=== PATIENT | male | born 1960 | race Caucasian/White ===

== ENCOUNTER 2017-12-16 06:38 | Inpatient (IN) ==
[2017-12-16] MEDS ORDERED: Sod Chloride 0.9% Inj 1,000 ML IV.SIG ONE (07:24)
[2017-12-16] MEDS ORDERED: Morphine Inj 4 MG/ML Vial IV.PUSH STA (07:24)
[2017-12-16 07:54] LABS: Baso # (Auto) 0.1 th/mm3 (0.0-0.2); Eos # (Auto) 0.1 th/mm3 (0.0-0.4); Eos % (Auto) 0.9 % (0.0-4.0); Hematocrit 44.7 % (39.0-51.0); Hemoglobin 15.9 gm/dL (13.0-17.0); Lymph # (Auto) 2.2 th/mm3 (1.0-4.8); Lymph % (Auto) 18.7 % (9.0-44.0); Mean Corpuscular HGB Conc 35.5 % (32.0-36.0); Mean Corpuscular Hemoglobin 34.2 pg (27.0-34.0); Mean Corpuscular Volume 96.4 fL (80.0-100.0); Mean Platelet Volume 9.7 fL (7.0-11.0); Mono # (Auto) 0.9 th/mm3 (0.0-0.9); Mono % (Auto) 7.8 % (0.0-8.0); Neut # (Auto) 8.6 th/mm3 (1.8-7.7); Neut % (Auto) 71.6 % (16.0-70.0); Platelet Count 213 th/mm3 (150-450); Red Blood Count 4.64 mil/mm3 (4.50-5.90); Red Cell Distribution Width 12.7 % (11.6-17.2); White Blood Count 11.9 th/mm3 (4.0-11.0)
[2017-12-16 08:03] LABS: Chloride 102 meq/L (98-107); Potassium 3.7 meq/L (3.5-5.1); Sodium 134 meq/L (136-145)
[2017-12-16 08:07] LABS: Activated Partial Thrombo Time 27.4 sec (24.3-30.1); Albumin 3.8 g/dL (3.4-5.0); Anion Gap 9 meq/L (5-15); Blood Urea Nitrogen 7 mg/dL (7-18); Calcium 8.3 mg/dL (8.5-10.1); Carbon Dioxide 22.8 meq/L (21.0-32.0); Glucose,Random 121 mg/dL (74-106); Prothrombin Time 10.4 sec (9.8-11.6)
[2017-12-16 08:10] LABS: Alanine Aminotransferase 43 U/L (12-78); Aspartate Aminotransferase 35 U/L (15-37); Glomerular Filtration Rate Greater Than 89 mL/min (>89)
[2017-12-16 08:12] LABS: Lipase 19203 U/L (73-393); Total Protein 7.5 g/dL (6.4-8.2)
[2017-12-16 08:13] LABS: Alkaline Phosphatase 71 U/L (45-117); Creatine Kinase 433 U/L (39-308)
[2017-12-16 08:25] LABS: CKMB Percent 0.5 % (0.0-4.0); Creatine Kinase MB 2.1 ng/mL (0.5-3.6)
--- NOTE | 2017-12-16 08:29 | XR ---
EXAM DATE: 12/16/2017 8:06 AM EDT AGE/SEX: 57 years / Male INDICATIONS: Chest and epigastric pain. CLINICAL DATA: This is the patient's initial encounter. Patient reports that signs and symptoms have been present for 2 days and indicates a pain score of 10/10. MEDICAL/SURGICAL HISTORY: None. None. COMPARISON: PA lateral views chest dated July 14, 2014. FINDINGS: A single AP view of the chest demonstrates the lungs to be symmetrically aerated without evidence of mass, infiltrate or effusion. The cardiomediastinal contours are unremarkable. Osseous structures a re intact. CONCLUSION: Negative examination. Electronically signed by: Pam Richards MD 12/16/2017 8:27 AM EDT
[2017-12-16] MEDS ORDERED: Pantoprazole Inj 40 MG Vial IV.PUSH STA (08:39)
[2017-12-16] MEDS: Labetalol HCl Inj 100 MG/20 ML Vial IV.PUSH STA ×2 (08:59→10:00)
--- NOTE | 2017-12-16 09:28 | CT ---
EXAM DATE: 12/16/2017 9:21 AM EDT AGE/SEX: 57 years / Male INDICATIONS: Abdomen pain, bloating, nausea, vomiting 1 day CLINICAL DATA: This is the patient's initial encounter. Patient reports that signs and symptoms have been present for 1 day and indicates a pain score of 10/10. MEDICAL/SURGICAL HISTORY: Hypertension. Fusion, cervical. Umbilical hernia ORAL CONTRAST: No oral contrast ingested. RADIATION DOSE: 16.52 CTDI (mGy) COMPARISON: No prior exams available for comparison. TECHNIQUE: Multiple contiguous axial images were obtained through the abdomen and pelvis following b olus infusion of 95ML ml Omnipaque 350 (iohexol) nonionic water-soluble contrast as a single exam d ose. No oral contrast ingested. Using automated exposure control and adjustment of the mA and/or kV according to patient size, radiation dose was kept as low as reasonably achievable to obtain optimal diagnostic quality images. DICOM format image data is available electronically for review and compar [place]. FINDINGS: Lower Lungs: The visualized lower lungs are clear. Liver: The liver has a homogeneous low density without space-occupying lesion. There is no dilation o f the biliary tree. Gallbladder is unremarkable. Spleen: Homogeneous density without enlargement. Pancreas: The pancreas demonstrates normal enhancement. There is significant peripancreatic inflamma tory changes with grade of the adjacent mesenteric fat and a small fluid collection identified anteri or to the proximal pancreas, posterior to the greater curvature of the stomach. No evidence of concer donis pancreatic mass or pancreatic necrosis. Kidneys: Small exophytic simple cyst involving the left kidney. The kidneys are otherwise unremarkab le without evidence of concerning mass, hydronephrosis or stones. Adrenal Glands: Unremarkable. Aorta: The aorta and proximal iliac vessels are grossly unremarkable without aneurysmal dilation. Bowel/Mesentery: The bowel loops are grossly unremarkable. The cecum and sigmoid colon have a normal configuration. Abdominal Wall: Intact. Retroperitoneum: No evidence of adenopathy in the retrocrural, para-aortic, or deep pelvic regions. Bladder: Contours are smooth. Reproductive Organs: No abnormal masses or calcifications seen. Inguinal: The inguinal region is unremarkable without evidence of adenopathy. Bony Structures: Unremarkable. CONCLUSION: 1. CT findings consistent with acute pancreatitis. No evidence of pancreatic necrosis. 2. Fatty infiltration of the liver. Electronically signed by: Pam Richards MD 12/16/2017 9:27 AM EDT
[2017-12-16 09:31] LABS: Bilirubin,Urine Negative (Negative); Clarity,Urine Clear (Clear); Color,Urine Yellow (Yellw/Straw); Glucose,Urine (UA) Negative (Negative); Leukocyte Esterase,Urine Negative (Negative); Nitrite,Urine Negative (Negative); Specific Gravity,Urine 1.015 (1.002-1.035); Urobilinogen,Urine 0.2 mg/dL (Less than 2)
--- NOTE | 2017-12-16 09:33 | ED ---
HPI General Chief complaint: Abdominal Pain Stated complaint: Stomach bloated,chest tight since yesterday a.m. Time Seen by Provider: 12/16/17 07:05 History of Present Illness HPI narrative: 57-year-old male history of hypertension here for evaluation of abdominal pain that started 2 days ago in the epigastric area, pain is rated 9 out of 10, comes and goes, nothing makes it better or worse. No vomiting but nausea, no diarrhea or black stool. Patient states he had a colonoscopy done about 10 years ago and was "normal". No fever or chills or night sweats. Patient reports drinking about 5 or 6 beers every night as well as 2 glasses of wine daily. Related Data Home Medications Medication Instructions Recorded Confirmed Lipitor 80 mg PO HS 12/16/17 12/19/17 [place] 5 - 325 mg PO DIRECTED 12/16/17 12/16/17 metoprolol succinate 50 mg PO DAILY 12/16/17 12/19/17 Allergies Allergy/AdvReac Type Severity Reaction Status Date / Time Sulfa (Sulfonamide Allergy Severe Rash, Verified 12/16/17 06:51 Antibiotics) Generalized Review of Systems Except as stated in HPI: all other systems reviewed are negative FORMERLY [facility], 1928–1983 Medical History Medical History Alcohol abuse (Acute) Chronic neck and back pain (Acute) Hyperlipemia (Acute) Hypertension (Acute) Surgical History Surgical History History of hernia repair (Acute) History of neck surgery (Acute) Family History Family History Other Family history non-contributory Social History Social History Substance History: No History of Abuse Second Hand Smoke Exposure: Yes Smoking Status: Current every day smoker Tobacco Type: Cigarettes How Often Do You Have a Drink Containing Alcohol: 4 or more times a week Recent Travel in [facility] within the Last 8 Weeks: No Recent Out of Country Travel within the Last 8 Weeks: No Immunization History Tetanus Immunization: Unsure Hx Influenza Vaccine This Season: Yes Exam Narrative Exam Narrative: GENERAL: Alert oriented 3 no acute distress SKIN: Focused skin assessment warm/dry. HEAD: Atraumatic. Normocephalic. EYES: Pupils equal and round. No scleral icterus. No injection or drainage. ENT: No nasal bleeding or discharge. Mucous membranes pink and moist. NECK: Trachea midline. No JVD. CARDIOVASCULAR: Regular rate and rhythm. No murmur appreciated. RESPIRATORY: No accessory muscle use. Clear to auscultation. Breath sounds equal bilaterally. GASTROINTESTINAL: Tenderness on palpation of the epigastric region, no rebound, mild distention, abdomen soft. MUSCULOSKELETAL: No obvious deformities. No clubbing. No cyanosis. No edema. NEUROLOGICAL: Awake and alert. No obvious cranial nerve deficits. Motor grossly within normal limits. Normal speech. PSYCHIATRIC: Appropriate mood and affect; insight and judgment normal. Procedures Hemaprompt Stool Procedural Steps Taken: specimen placed in appropriate test area Hemaprompt Stool Result: negative Course Initial Documented Vital Signs Pulse Rate 88 12/16/17 06:45 Respiratory Rate 18 12/16/17 06:45 Blood Pressure 205/118 H 12/16/17 06:45 Pulse Oximetry 98 12/16/17 06:45 Last Documented Vital Signs Temperature 98.0 F 12/21/17 12:00 Pulse Rate 84 12/21/17 12:00 Respiratory Rate 19 12/21/17 12:00 Blood Pressure 139/82 12/21/17 12:00 Pulse Oximetry 97 12/21/17 12:00 Medical Decision Making [facility] Narrative Medical decision making narrative: 57-year-old male here for evaluation of abdominal pain, labs are concerning for pancreatitis, elevated lipase of 19,000 , pt will be admitted for pancreatitis management. Lab Data Result diagrams: 12/20/17 05:45 12/20/17 05:45 Lab Results 12/16/17 12/16/17 12/16/17 Range/Units 07:41 07:41 07:41 CBC w Diff Auto diff final WBC 11.9 H (4.0-11.0) th/mm3 RBC 4.64 (4.50-5.90) mil/mm3 Hgb 15.9 (13.0-17.0) gm/dL Hct 44.7 (39.0-51.0) % MCV 96.4 (80.0-100.0) fL MCH 34.2 H (27.0-34.0) pg MCHC 35.5 (32.0-36.0) % RDW 12.7 (11.6-17.2) % Plt Count 213 (150-450) th/mm3 MPV 9.7 (7.0-11.0) fL Neut % (Auto) 71.6 H (16.0-70.0) % Lymph % (Auto) 18.7 (9.0-44.0) % [place] % (Auto) 7.8 (0.0-8.0) % Eos % (Auto) 0.9 (0.0-4.0) % Baso % (Auto) 1.0 (0.0-2.0) % Neut # (Auto) 8.6 H (1.8-7.7) th/mm3 Lymph # (Auto) 2.2 (1.0-4.8) th/mm3 [place] # (Auto) 0.9 (0.0-0.9) th/mm3 Eos # (Auto) 0.1 (0.0-0.4) th/mm3 Baso # (Auto) 0.1 (0.0-0.2) th/mm3 WBC Differential . Differential Comment . PT 10.4 (9.8-11.6) sec INR 1.0 Ratio APTT 27.4 (24.3-30.1) sec Sodium 134 L (136-145) meq/L Potassium 3.7 (3.5-5.1) meq/L Chloride 102 (98-107) meq/L Carbon Dioxide 22.8 (21.0-32.0) meq/L Anion Gap 9 (5-15) meq/L BUN 7 (7-18) mg/dL Creatinine 0.77 (0.60-1.30) mg/dL Estimated GFR Greater than 89 (>89) mL/min Random Glucose 121 H (74-106) mg/dL Calcium 8.3 L (8.5-10.1) mg/dL Total Bilirubin 0.7 (0.2-1.0) mg/dL AST 35 (15-37) U/L ALT 43 (12-78) U/L Alkaline Phosphatase 71 (45-117) U/L Total Creatine Kinase 433 H (39-308) U/L CK-MB (CK-2) 2.1 (0.5-3.6) ng/mL CK-MB (CK-2) % 0.5 (0.0-4.0) % Troponin I Less than 0.02 L (0.02-0.05) ng/mL Total Protein 7.5 (6.4-8.2) g/dL Albumin 3.8 (3.4-5.0) g/dL Lipase 01300 H (73-393) U/L Ur Collection Type Urine Color (Yellw/Straw) Urine Clarity (Clear) Urine pH (5.0-8.5) Ur Specific [place] (1.002-1.035) Urine Protein (Neg-Trace) mg/dL Urine Glucose (UA) (Negative) mg/dL Urine Ketones (Negative) mg/dL Urine Occult Blood (Negative) Urine Nitrate (Negative) Urine Bilirubin (Negative) Urine Urobilinogen (Less than 2) mg/dL Ur Leukocyte Esterase (Negative) Urine WBC (0-5) /hpf Urine Mucus (Occasional) /lpf Micro UA Comment Urine Culture Comments 12/16/17 12/17/17 12/17/17 Range/Units 09:05 06:15 06:15 CBC w Diff Auto diff final WBC 8.2 (4.0-11.0) th/mm3 RBC 4.38 L (4.50-5.90) mil/mm3 Hgb 14.5 (13.0-17.0) gm/dL Hct 42.4 (39.0-51.0) % MCV 96.9 (80.0-100.0) fL MCH 33.1 (27.0-34.0) pg MCHC 34.2 (32.0-36.0) % RDW 12.7 (11.6-17.2) % Plt Count 180 (150-450) th/mm3 MPV 9.4 (7.0-11.0) fL Neut % (Auto) 69.5 (16.0-70.0) % Lymph % (Auto) 20.4 (9.0-44.0) % [place] % (Auto) 8.4 H (0.0-8.0) % Eos % (Auto) 1.5 (0.0-4.0) % Baso % (Auto) 0.2 (0.0-2.0) % Neut # (Auto) 5.7 (1.8-7.7) th/mm3 Lymph # (Auto) 1.7 (1.0-4.8) th/mm3 [place] # (Auto) 0.7 (0.0-0.9) th/mm3 Eos # (Auto) 0.1 (0.0-0.4) th/mm3 Baso # (Auto) 0.0 (0.0-0.2) th/mm3 WBC Differential . Differential Comment . PT (9.8-11.6) sec INR Ratio APTT (24.3-30.1) sec Sodium 136 (136-145) meq/L Potassium 3.7 (3.5-5.1) meq/L Chloride 101 (98-107) meq/L Carbon Dioxide 30.3 (21.0-32.0) meq/L Anion Gap 5 (5-15) meq/L BUN 11 (7-18) mg/dL Creatinine 0.83 (0.60-1.30) mg/dL Estimated GFR Greater than 89 (>89) mL/min Random Glucose 100 (74-106) mg/dL Calcium 8.0 L (8.5-10.1) mg/dL Total Bilirubin (0.2-1.0) mg/dL AST (15-37) U/L ALT (12-78) U/L Alkaline Phosphatase (45-117) U/L Total Creatine Kinase (39-308) U/L CK-MB (CK-2) (0.5-3.6) ng/mL CK-MB (CK-2) % (0.0-4.0) % Troponin I (0.02-0.05) ng/mL Total Protein (6.4-8.2) g/dL Albumin (3.4-5.0) g/dL Lipase 3364 H (73-393) U/L Ur Collection Type Clean catch Urine Color Yellow (Yellw/Straw) Urine Clarity Clear (Clear) Urine pH 6.0 (5.0-8.5) Ur Specific [place] 1.015 (1.002-1.035) Urine Protein Negative (Neg-Trace) mg/dL Urine Glucose (UA) Negative (Negative) mg/dL Urine Ketones Negative (Negative) mg/dL Urine Occult Blood Negative (Negative) Urine Nitrate Negative (Negative) Urine Bilirubin Negative (Negative) Urine Urobilinogen 0.2 (Less than 2) mg/dL Ur Leukocyte Esterase Negative (Negative) Urine WBC 0-5 (0-5) /hpf Urine Mucus Rare (Occasional) /lpf Micro UA Comment Culture not ind Urine Culture Comments Culture not ind 12/18/17 12/19/17 12/20/17 Range/Units 05:03 05:22 05:45 CBC w Diff WBC 8.3 (4.0-11.0) th/mm3 RBC 3.31 L (4.50-5.90) mil/mm3 Hgb 11.5 L (13.0-17.0) gm/dL Hct 32.1 L (39.0-51.0) % MCV 97.0 (80.0-100.0) fL MCH 34.8 H (27.0-34.0) pg MCHC 35.9 (32.0-36.0) % RDW 12.5 (11.6-17.2) % Plt Count 180 (150-450) th/mm3 MPV 9.0 (7.0-11.0) fL Neut % (Auto) (16.0-70.0) % Lymph % (Auto) (9.0-44.0) % [place] % (Auto) (0.0-8.0) % Eos % (Auto) (0.0-4.0) % Baso % (Auto) (0.0-2.0) % Neut # (Auto) (1.8-7.7) th/mm3 Lymph # (Auto) (1.0-4.8) th/mm3 [place] # (Auto) (0.0-0.9) th/mm3 Eos # (Auto) (0.0-0.4) th/mm3 Baso # (Auto) (0.0-0.2) th/mm3 WBC Differential Differential Comment PT (9.8-11.6) sec INR Ratio APTT (24.3-30.1) sec Sodium 135 L 135 L (136-145) meq/L Potassium 3.4 L 3.5 (3.5-5.1) meq/L Chloride 99 101 (98-107) meq/L Carbon Dioxide 29.2 27.3 (21.0-32.0) meq/L Anion Gap 7 7 (5-15) meq/L BUN 13 8 (7-18) mg/dL Creatinine 0.70 0.60 (0.60-1.30) mg/dL Estimated GFR Greater than 89 Greater than 89 (>89) mL/min Random Glucose 81 89 (74-106) mg/dL Calcium 7.9 L 7.7 L (8.5-10.1) mg/dL Total Bilirubin (0.2-1.0) mg/dL AST (15-37) U/L ALT (12-78) U/L Alkaline Phosphatase (45-117) U/L Total Creatine Kinase (39-308) U/L CK-MB (CK-2) (0.5-3.6) ng/mL CK-MB (CK-2) % (0.0-4.0) % Troponin I (0.02-0.05) ng/mL Total Protein (6.4-8.2) g/dL Albumin (3.4-5.0) g/dL Lipase 858 H 487 H (73-393) U/L Ur Collection Type Urine Color (Yellw/Straw) Urine Clarity (Clear) Urine pH (5.0-8.5) Ur Specific [place] (1.002-1.035) Urine Protein (Neg-Trace) mg/dL Urine Glucose (UA) (Negative) mg/dL Urine Ketones (Negative) mg/dL Urine Occult Blood (Negative) Urine Nitrate (Negative) Urine Bilirubin (Negative) Urine Urobilinogen (Less than 2) mg/dL Ur Leukocyte Esterase (Negative) Urine WBC (0-5) /hpf Urine Mucus (Occasional) /lpf Micro UA Comment Urine Culture Comments 12/20/17 Range/Units 05:45 CBC w Diff WBC (4.0-11.0) th/mm3 RBC (4.50-5.90) mil/mm3 Hgb (13.0-17.0) gm/dL Hct (39.0-51.0) % MCV (80.0-100.0) fL MCH (27.0-34.0) pg MCHC (32.0-36.0) % RDW (11.6-17.2) % Plt Count (150-450) th/mm3 MPV (7.0-11.0) fL Neut % (Auto) (16.0-70.0) % Lymph % (Auto) (9.0-44.0) % [place] % (Auto) (0.0-8.0) % Eos % (Auto) (0.0-4.0) % Baso % (Auto) (0.0-2.0) % Neut # (Auto) (1.8-7.7) th/mm3 Lymph # (Auto) (1.0-4.8) th/mm3 [place] # (Auto) (0.0-0.9) th/mm3 Eos # (Auto) (0.0-0.4) th/mm3 Baso # (Auto) (0.0-0.2) th/mm3 WBC Differential Differential Comment PT (9.8-11.6) sec INR Ratio APTT (24.3-30.1) sec Sodium 137 (136-145) meq/L Potassium 3.5 (3.5-5.1) meq/L Chloride 100 (98-107) meq/L Carbon Dioxide 31.7 (21.0-32.0) meq/L Anion Gap 5 (5-15) meq/L BUN 6 L (7-18) mg/dL Creatinine 0.64 (0.60-1.30) mg/dL Estimated GFR Greater than 89 (>89) mL/min Random Glucose 110 H (74-106) mg/dL Calcium 8.2 L (8.5-10.1) mg/dL Total Bilirubin (0.2-1.0) mg/dL AST (15-37) U/L ALT (12-78) U/L Alkaline Phosphatase (45-117) U/L Total Creatine Kinase (39-308) U/L CK-MB (CK-2) (0.5-3.6) ng/mL CK-MB (CK-2) % (0.0-4.0) % Troponin I (0.02-0.05) ng/mL Total Protein (6.4-8.2) g/dL Albumin (3.4-5.0) g/dL Lipase 314 (73-393) U/L Ur Collection Type Urine Color (Yellw/Straw) Urine Clarity (Clear) Urine pH (5.0-8.5) Ur Specific [place] (1.002-1.035) Urine Protein (Neg-Trace) mg/dL Urine Glucose (UA) (Negative) mg/dL Urine Ketones (Negative) mg/dL Urine Occult Blood (Negative) Urine Nitrate (Negative) Urine Bilirubin (Negative) Urine Urobilinogen (Less than 2) mg/dL Ur Leukocyte Esterase (Negative) Urine WBC (0-5) /hpf Urine Mucus (Occasional) /lpf Micro UA Comment Urine Culture Comments Imaging Data Radiologist's impression: Chest X-Ray 12/16/17 07:24 CONCLUSION: Negative examination. Abdomen/Pelvis CT 12/16/17 08:39 CONCLUSION: 1. CT findings consistent with acute pancreatitis. No evidence of pancreatic necrosis. 2. Fatty infiltration of the liver. Abdomen X-Ray 12/18/17 00:00 CONCLUSION: Ileus. No definite obstruction or free air. Abdomen/Pelvis CT 12/19/17 00:00 CONCLUSION: 1. Worsening of CT findings of acute pancreatitis with some increase in fluid and edema around the pancreas since December 4. Fluid at this point appears to be mostly nonloculated. There is also trace free fluid in the abdomen and pelvis. 2. Diffuse ileus. 3. New mild basilar atelectasis. Abdomen X-Ray 12/20/17 00:00 CONCLUSION: There has been mild improvement in the bowel gas pattern compared to the prior examination. Discharge Plan Discharge Disposition Patient Disposition: 01 Discharge Home Discharge Condition Condition: Stable Discharge Order Discharge Orders: Discharge Order (Routine); Ordered 12/21/17 Ordered By: Neda Roberts Discharge Details Anticipated Discharge Date: 12/21/17 Physicians Team ED Provider: Ney Mejia Primary Care Provider: Dacia Stokes Attending Provider: Neda Roberts Other Providers: Bishop Jorgensen V Status ED Status: Left Department Discharge Information Discharge Date/Time: 12/16/17 11:14
[2017-12-16 09:39] LABS: Mucus,Urine Rare /lpf (Occasional); WBC,Urine 0-5 /hpf (0-5)
--- NOTE | 2017-12-16 11:44 | P.HPIM ---
History of Present Illness Service: [facility] Primary Care Physician: Dacia Stokes MD History of Present Illness: 57-year-old male with a medical history significant for hypertension and alcohol abuse presented to the emergency room for chest pain that started 2 days ago. Pain is located in the midepigastric region, described as severe and sharp with associated dry heaving. No diarrhea. Patient reports he drinks about 6 beers every day and a few glasses of wine at night. He reports a few days ago he drank a lot more while he was golfing. Workup in the emergency room consistent with acute pancreatitis. - Diagnosis (1) Acute pancreatitis (2) Alcohol dependence (3) Accelerated hypertension Inpatient Certification: I certify that the inpatient services were ordered in accordance with Medicare regulations governing the order. This includes certification that hospital inpatient services are reasonable and necessary and in the case of services not specified as inpatient-only under 42 CFR 419.22(n), that they are appropriately provided as inpatient services in accordance to with the 2-midnight benchmark under 43 CFR 412.3(e) Estimated Total Length of Stay (Days): 3 Plans for Post Hospital Care: Home Review of Systems All other systems reviewed negative except as stated in HPI PMFSH - History History Provided By: Patient - Medical History Medical History: Medical History (Last Updated 12/16/17 @ 16:45 by Nelida Steven MD) Alcohol abuse Chronic neck and back pain Hyperlipemia Hypertension - Surgical History Surgical History: Surgical History (Last Updated 12/16/17 @ 16:45 by Nelida Steven MD) History of hernia repair History of neck surgery - Family History Family History: Family History (Last Updated 12/16/17 @ 16:45 by Nelida Steven MD) Other Family history non-contributory - Tobacco History Second Hand Smoke Exposure: Yes Tobacco Use In Past 30 Days: Yes (1ppd) Smoking Status: Current every day smoker Tobacco Type: Cigarettes - Alcohol History How Often Do You Have a Drink Containing Alcohol: 4 or more times a week - Substance Use History Substance History: No History of Abuse - Travel History Recent Travel in the [place] Within the Last 8 Weeks: No Recent Travel Out of the Country Within the Last 8 Weeks: No - Immunization History Tetanus Immunization: Unsure Hx Influenza Vaccine This Season: Yes Medications and Allergies Active Medications: Active Medications Heparin Sodium (Porcine) (Heparin Inj) 5,000 units SQ Q12H [facility] Lactated Ringer's (Lr 1000 Ml Inj) 1,000 mls @ 100 mls/hr IV.CONT .Q10H [facility] Morphine Sulfate (Morphine Inj) 5 mg IV.PUSH Q3H PRN PRN Reason: PAIN SCALE 6 TO 10 Sodium Chloride (Ns Flush) 2 ml IV.FLUSH BID SHERRI Sodium Chloride (Ns Flush) 2 ml IV.FLUSH PRN PRN PRN Reason: FLUSH AFTER USING IV ACCESS Allergies Allergy/AdvReac Type Severity Reaction Status Date / Time Sulfa (Sulfonamide Allergy Severe Rash, Verified 12/16/17 06:51 Antibiotics) Generalized Home Medications Medication Instructions Recorded Confirmed Type Lipitor 80 mg PO 12/16/17 History Prim 5 - 325 mg PO DIRECTED 12/16/17 12/16/17 History metoprolol succinate 50 mg PO 12/16/17 History Exam Vital signs: Vital Signs 12/16/17 06:45 12/16/17 06:48 12/16/17 07:25 Pulse Rate 88 81 Respiratory Rate 18 16 18 Blood Pressure 205/118 H 215/118 H Blood Pressure [Left Arm] 197/111 H Blood Pressure [Right Arm] 205/118 H Pulse Oximetry 98 99 12/16/17 09:40 12/16/17 10:31 12/16/17 11:07 Pulse Rate 82 81 Respiratory Rate 16 16 16 Blood Pressure 212/98 H 189/96 H 187/97 H Blood Pressure [Left Arm] Blood Pressure [Right Arm] Pulse Oximetry 99 Intake & Output 12/15/17 12/16/17 12/16/17 18:59 06:59 18:59 Intake Total 1000 / 1000 Balance 1000 / 1000 Weight 85.9 kg Intake: IV 1000 / 1000 NS Inj 1,000 ML @ Wide Open IV. 1000 / 1000 SIG BOLUS ONE Rx#:[id number] Narrative: CONSTITUTIONAL/GENERAL: This is an adequately nourished patient, in no apparent distress. Vital signs reviewed SKIN: No jaundice, rashes, or concerning lesions. Not diaphoretic. HEAD: Atraumatic. Normocephalic. EYES: Pupils equal and round and reactive. Extra ocular motions are intact. No scleral icterus. No injection or drainage. ENT: Hearing grossly normal. Nose without drainage. Throat without visible erythema, exudates, masses, or lesions. NECK: Trachea midline. Neck is supple, non-tender. No palpable thyroid enlargement or nodularity. CARDIOVASCULAR: Normal rate and regular rhythm without murmurs, gallops, or rubs. No JVD. Peripheral pulses 2+ and symmetric. RESPIRATORY/CHEST: Symmetric, unlabored respirations. Breath sounds equal and clear to auscultation bilaterally. No wheezes, crackles, rales, or rhonchi. GASTROINTESTINAL: Abdomen obese and distended. Markedly tender to palpation in the midepigastric region. Bowel sounds hypoactive. MUSCULOSKELETAL: Extremities without clubbing, cyanosis, or edema. No joint tenderness or effusion noted. No calf tenderness. No mottling or clubbing. NEUROLOGICAL: Awake and alert. Motor and sensory grossly within normal limits. Follows commands. Move all extremities spontaneously. No focal deficits. PSYCHIATRIC: No obvious mood problems. No apparent hallucinations or other psychotic thought process. Results - Labs CBC & Chem 7: 12/16/17 07:41 12/16/17 07:41 Labs: Short CBC 12/16/17 Range/Units 07:41 WBC 11.9 H (4.0-11.0) th/mm3 Hgb 15.9 (13.0-17.0) gm/dL Hct 44.7 (39.0-51.0) % Plt Count 213 (150-450) th/mm3 BMP 12/16/17 07:41 Sodium 134 L Potassium 3.7 Chloride 102 Carbon Dioxide 22.8 BUN 7 Creatinine 0.77 Calcium 8.3 L Cardiac Enzymes 12/16/17 Range/Units 07:41 Total Creatine Kinase 433 H (39-308) U/L CK-MB (CK-2) 2.1 (0.5-3.6) ng/mL Troponin I Less than 0.02 L (0.02-0.05) ng/mL Liver Function 12/16/17 Range/Units 07:41 Total Bilirubin 0.7 (0.2-1.0) mg/dL AST 35 (15-37) U/L ALT 43 (12-78) U/L Alkaline Phosphatase 71 (45-117) U/L Albumin 3.8 (3.4-5.0) g/dL Urine 12/16/17 Range/Units 09:05 Urine Color Yellow (Yellw/Straw) Urine Clarity Clear (Clear) Urine pH 6.0 (5.0-8.5) Ur Specific [place] 1.015 (1.002-1.035) Urine Protein Negative (Neg-Trace) mg/dL Urine Glucose (UA) Negative (Negative) mg/dL - Imaging Impressions Chest X-Ray 12/16/17 07:24 CONCLUSION: Negative examination. Abdomen/Pelvis CT 12/16/17 08:39 CONCLUSION: 1. CT findings consistent with acute pancreatitis. No evidence of pancreatic necrosis. 2. Fatty infiltration of the liver. Caprini VTE Risk Assessment Caprini VTE Risk Assessment: Moderate/High Risk (score >= 2) Caprini Risk Assessment Model: Point Value = 1 Point Value = 2 Point Value = 3 Point Value = 5 Age 41-60 Minor surgery BMI > 25 kg/m2 Swollen legs Varicose veins or History of unexplained or recurrent spontaneous Oral contraceptives or hormone replacement Sepsis (< 1 month) Serious lung disease, including pneumonia (< 1 month) Abnormal pulmonary function Acute myocardial infarction Congestive heart failure (< 1 month) History of inflammatory bowel disease Medical patient at bed rest Age 61-74 Arthroscopic surgery Major open surgery (> 45 min) Laparoscopic surgery (> 45 min) Malignancy Confined to bed (> 72 hours) Immobilizing plaster cast Central venous access Age >= 75 History of VTE Family history of VTE Factor V Leiden Prothrombin [id number] Lupus anticoagulant Anticardiolipin antibodies Elevated serum homocysteine Heparin-induced thrombocytopenia Other congenital or acquired thrombophilia Stroke (< 1 month) Elective arthroplasty Hip, pelvis, or leg fracture Acute spinal cord injury (< 1 month) Prophylaxis Regimen: Total Risk Factor Score Risk Level Prophylaxis Regimen 0-1 Low Early ambulation 2 Moderate Order ONE of the following: *Sequential Compression Device (SCD) *Heparin 5000 units SQ BID 3-4 Higher Order ONE of the following medications: *Heparin 5000 units SQ TID *Enoxaparin/Lovenox 40 mg SQ daily (WT < 150 kg, CrCl > 30 mL/min) *Enoxaparin/Lovenox 30 mg SQ daily (WT < 150 kg, CrCl > 10-29 mL/min) *Enoxaparin/Lovenox 30 mg SQ BID (WT < 150 kg, CrCl > 30 mL/min) AND/OR *Sequential Compression Device (SCD) 5 or more Highest Order ONE of the following medications: *Heparin 5000 units SQ TID (Preferred with Epidurals) *Enoxaparin/Lovenox 40 mg SQ daily (WT < 150 kg, CrCl > 30 mL/min) *Enoxaparin/Lovenox 30 mg SQ daily (WT < 150 kg, CrCl > 10-29 mL/min) *Enoxaparin/Lovenox 30 mg SQ BID (WT < 150 kg, CrCl > 30 mL/min) AND *Sequential Compression Device (SCD) Assessment and Plan - Assessment (1) Acute pancreatitis Code(s): K85.90 - Acute pancreatitis without necrosis or infection, unspecified Status: Acute (2) Alcohol dependence Code(s): F10.20 - Alcohol dependence, uncomplicated Status: Acute (3) Accelerated hypertension Code(s): I10 - Essential (primary) hypertension Status: Acute - Plan 57-year-old male admitted with acute alcoholic pancreatitis. Alcoholic pancreatitis: -Supportive care with IV fluids, pain control. Pain currently not controlled with IV morphine. IV Dilaudid for breakthrough. -Patient counseled regarding cessation of alcohol use. Accelerated hypertension: Likely secondary to uncontrolled pain. Resume home dose metoprolol. Vasotec as needed. Alcohol dependence: -Patient extensively counseled on cessation of alcohol use. - [facility] protocol. GI prophylaxis: PPI. Stool softener PRN constipation. DVT PPx: Heparin Discussed Condition With: ED physician
[2017-12-16] MEDS: Heparin - SQ 10,000 UNITS/ML Vial SQ SCH (12:29)
[2017-12-16] MEDS: HYDROmorphone PF Inj 2 MG/ML Vial IV.PUSH PRN ×3 (12:30→20:35)
--- NOTE | 2017-12-16 13:47 | ECG ---
Date Performed: 12/16/2017 Time Performed: 06:47:07 PTAGE: 57 years EKG: Sinus rhythm POSSIBLE LEFT ATRIAL ENLARGEMENT BORDERLINE ECG Since the PREVIOUS TRACING , no significant change noted PREVIOUS TRACIN10/03/2013 12.05 DOCTOR: Sera Linder Interpretating Date/Time 12/16/2017 13:46:11
[2017-12-16] MEDS ORDERED: Haloperidol Inj 5 MG/ML Ampul IV.PUSH PRN (16:43)
[2017-12-16] MEDS ORDERED: LORazepam 1 MG Tablet PO PRN (16:43)
[2017-12-16] MEDS: Pantoprazole Inj 40 MG Vial IV.PUSH SCH (18:52)
[2017-12-17] MEDS: Heparin - SQ 10,000 UNITS/ML Vial SQ SCH ×4 (00:02→22:24)
[2017-12-17] MEDS: HYDROmorphone PF Inj 2 MG/ML Vial IV.PUSH PRN ×6 (00:03→20:59)
[2017-12-17 07:20] LABS: Baso % (Auto) 0.2 % (0.0-2.0); Eos # (Auto) 0.1 th/mm3 (0.0-0.4); Eos % (Auto) 1.5 % (0.0-4.0); Hematocrit 42.4 % (39.0-51.0); Hemoglobin 14.5 gm/dL (13.0-17.0); Lymph # (Auto) 1.7 th/mm3 (1.0-4.8); Lymph % (Auto) 20.4 % (9.0-44.0); Mean Corpuscular HGB Conc 34.2 % (32.0-36.0); Mean Corpuscular Hemoglobin 33.1 pg (27.0-34.0); Mean Corpuscular Volume 96.9 fL (80.0-100.0); Mean Platelet Volume 9.4 fL (7.0-11.0); Mono # (Auto) 0.7 th/mm3 (0.0-0.9); Mono % (Auto) 8.4 % (0.0-8.0); Neut # (Auto) 5.7 th/mm3 (1.8-7.7); Neut % (Auto) 69.5 % (16.0-70.0); Platelet Count 180 th/mm3 (150-450); Red Blood Count 4.38 mil/mm3 (4.50-5.90); Red Cell Distribution Width 12.7 % (11.6-17.2); White Blood Count 8.2 th/mm3 (4.0-11.0)
[2017-12-17 07:42] LABS: Chloride 101 meq/L (98-107); Potassium 3.7 meq/L (3.5-5.1); Sodium 136 meq/L (136-145)
[2017-12-17 07:45] LABS: Anion Gap 5 meq/L (5-15); Blood Urea Nitrogen 11 mg/dL (7-18); Carbon Dioxide 30.3 meq/L (21.0-32.0); Glucose,Random 100 mg/dL (74-106)
[2017-12-17 07:48] LABS: Glomerular Filtration Rate Greater Than 89 mL/min (>89)
[2017-12-17 07:50] LABS: Lipase 3364 U/L (73-393)
--- NOTE | 2017-12-17 10:13 | P.PNIM ---
Subjective Interval history: Patient reports he is feeling better today but still having significant abdominal discomfort and distention. States he has not had a bowel movement for the past 3 days. Physical Exam Vital signs: Vital Signs 12/16/17 10:31 12/16/17 11:07 12/16/17 12:00 Temperature 96.6 F L Pulse Rate 81 86 Respiratory Rate 16 16 18 Blood Pressure 189/96 H 187/97 H 187/102 H Pulse Oximetry 99 95 12/16/17 16:00 12/16/17 20:00 12/17/17 00:00 Temperature 98.3 F 96.7 F L 96.9 F L Pulse Rate 92 H 89 83 Respiratory Rate 18 20 20 Blood Pressure 136/84 137/94 H 140/84 Pulse Oximetry 96 97 94 L 12/17/17 08:00 Temperature 97.6 F Pulse Rate 79 Respiratory Rate 18 Blood Pressure 125/70 Pulse Oximetry 95 Intake & Output 12/16/17 12/17/17 12/17/17 18:59 06:59 18:59 Intake Total 1000 / 1000 900 / 900 Balance 1000 / 1000 900 / 900 Weight 85.7 kg Intake: IV 1000 / 1000 900 / 900 LR 1000 mL Inj 1,000 ML @ 100 900 / 900 mls/hr IV.CONT .Q10H [facility] Rx#: [id number] NS Inj 1,000 ML @ Wide Open IV. 1000 / 1000 SIG BOLUS ONE Rx#:[id number] Oral 0 / 0 0 / 0 Other: # Voids 2 4 # Bowel Movements 1 Narrative: GENERAL: This is a well-nourished, well-developed patient, in no apparent distress. CARDIOVASCULAR: Normal rate and regular rhythm without murmurs, gallops, or rubs. RESPIRATORY: Good respiratory efforts. Breath sounds equal and clear to auscultation bilaterally. GASTROINTESTINAL: Abdomen is obese, distended, marked tenderness to palpation in the midepigastric region. Hypoactive BS MUSCULOSKELETAL: Extremities without cyanosis, or edema. NEURO: Alert & Oriented x4 to person, place, time, situation. Moves all ext x4 PSYCH: Appropriate mood and affect. Results - Labs CBC & Chem 7: 12/17/17 06:15 12/17/17 06:15 Laboratory Results - last 24 hr 12/17/17 12/17/17 06:15 06:15 CBC w Diff Auto diff final WBC 8.2 RBC 4.38 L Hgb 14.5 Hct 42.4 MCV 96.9 MCH 33.1 MCHC 34.2 RDW 12.7 Plt Count 180 MPV 9.4 Neut % (Auto) 69.5 Lymph % (Auto) 20.4 [place] % (Auto) 8.4 H Eos % (Auto) 1.5 Baso % (Auto) 0.2 Neut # (Auto) 5.7 Lymph # (Auto) 1.7 [place] # (Auto) 0.7 Eos # (Auto) 0.1 Baso # (Auto) 0.0 WBC Differential . Differential Comment . Sodium 136 Potassium 3.7 Chloride 101 Carbon Dioxide 30.3 Anion Gap 5 BUN 11 Creatinine 0.83 Estimated GFR Greater than 89 Random Glucose 100 Calcium 8.0 L Lipase 3364 H Assessment and Plan - Assessment (1) Acute pancreatitis Code(s): K85.90 - Acute pancreatitis without necrosis or infection, unspecified Status: Acute (2) Alcohol dependence Code(s): F10.20 - Alcohol dependence, uncomplicated Status: Acute (3) Accelerated hypertension Code(s): I10 - Essential (primary) hypertension Status: Acute - Plan 57-year-old male admitted with acute alcoholic pancreatitis. Alcoholic pancreatitis: -Supportive care with IV fluids, pain control. Continue with IV morphine. IV Dilaudid for breakthrough. -Patient counseled regarding cessation of alcohol use. Hypertension Continue home dose metoprolol. Vasotec as needed. Alcohol dependence: -Patient extensively counseled on cessation of alcohol use. - [facility] protocol. GI prophylaxis: PPI. Stool softener PRN constipation. Constipation: Will give a dose of Lactulose. DVT PPx: Heparin
[2017-12-17] MEDS ORDERED: Sod Phosphate/Sod Biphosphate (Adult) Enema 133 ML Bottle RECTAL ONE (15:00)
[2017-12-17] MEDS: Pantoprazole Inj 40 MG Vial IV.PUSH SCH (16:55)
[2017-12-18] MEDS: HYDROmorphone PF Inj 2 MG/ML Vial IV.PUSH PRN ×3 (01:49→10:13)
[2017-12-18 07:01] LABS: Chloride 99 meq/L (98-107); Potassium 3.4 meq/L (3.5-5.1); Sodium 135 meq/L (136-145)
[2017-12-18 07:04] LABS: Anion Gap 7 meq/L (5-15); Calcium 7.9 mg/dL (8.5-10.1); Carbon Dioxide 29.2 meq/L (21.0-32.0)
[2017-12-18 07:05] LABS: Blood Urea Nitrogen 13 mg/dL (7-18); Glucose,Random 81 mg/dL (74-106); Lipase 858 U/L (73-393)
[2017-12-18 07:08] LABS: Glomerular Filtration Rate Greater Than 89 mL/min (>89)
[2017-12-18] MEDS: Heparin - SQ 10,000 UNITS/ML Vial SQ SCH (10:16)
[2017-12-18] MEDS: Docusate Sodium 100 MG Capsule PO PRN (12:38)
--- NOTE | 2017-12-18 12:56 | P.PNIM ---
Subjective Interval history: Patient reports he was feeling better this morning until he ate. He suddenly had worsening abdominal pain and distention Physical Exam Vital signs: Vital Signs 12/17/17 16:00 12/17/17 20:00 12/18/17 00:00 Temperature 98.0 F 99.0 F 98.7 F Pulse Rate 89 85 83 Respiratory Rate 18 18 18 Blood Pressure 140/80 128/71 125/70 Pulse Oximetry 98 96 95 12/18/17 08:00 Temperature 98.1 F Pulse Rate 79 Respiratory Rate 20 Blood Pressure 120/72 Pulse Oximetry 95 Intake & Output 12/17/17 12/18/17 12/18/17 18:59 06:59 18:59 Intake Total 1000 / 1000 1000 / 1000 Balance 1000 / 1000 1000 / 1000 Weight 85.7 kg Intake: IV 1000 / 1000 1000 / 1000 LR 1000 mL Inj 1,000 ML @ 100 1000 / 1000 1000 / 1000 mls/hr IV.CONT .Q10H [facility] Rx#: [id number] Oral 0 / 0 Other: # Voids 4 3 Date of Last Bowel Movement 12/17/17 # Bowel Movements 1 Narrative: GENERAL: This is a well-nourished, well-developed patient, in no apparent distress. CARDIOVASCULAR: Normal rate and regular rhythm without murmurs, gallops, or rubs. RESPIRATORY: Good respiratory efforts. Breath sounds equal and clear to auscultation bilaterally. GASTROINTESTINAL: Abdomen is obese, distended, tender to palpation diffusely. Hypoactive BS MUSCULOSKELETAL: Extremities without cyanosis, or edema. NEURO: Alert & Oriented x4 to person, place, time, situation. Moves all ext x4 PSYCH: Appropriate mood and affect. Results - Labs CBC & Chem 7: 12/17/17 06:15 12/18/17 05:03 Laboratory Results - last 24 hr 12/18/17 05:03 Sodium 135 L Potassium 3.4 L Chloride 99 Carbon Dioxide 29.2 Anion Gap 7 BUN 13 Creatinine 0.70 Estimated GFR Greater than 89 Random Glucose 81 Calcium 7.9 L Lipase 858 H - Imaging Impressions Chest X-Ray 12/16/17 07:24 CONCLUSION: Negative examination. Abdomen/Pelvis CT 12/16/17 08:39 CONCLUSION: 1. CT findings consistent with acute pancreatitis. No evidence of pancreatic necrosis. 2. Fatty infiltration of the liver. Assessment and Plan - Assessment (1) Acute pancreatitis Code(s): K85.90 - Acute pancreatitis without necrosis or infection, unspecified Status: Acute (2) Alcohol dependence Code(s): F10.20 - Alcohol dependence, uncomplicated Status: Acute (3) Accelerated hypertension Code(s): I10 - Essential (primary) hypertension Status: Acute - Plan 57-year-old male admitted with acute alcoholic pancreatitis. Alcoholic pancreatitis: -Supportive care with IV fluids, pain control. Transition to oral Percocet and keep IV morphine for breakthrough pain -Patient counseled regarding cessation of alcohol use. Ileus: Obtain KUB today due to persistent/worsening abdominal distention. Patient found to have an ileus. -Keep n.p.o. for now. Continue IV fluid. Stool softeners. Hypertension Continue home dose metoprolol. Vasotec as needed. Alcohol dependence: -Patient extensively counseled on cessation of alcohol use. - [facility] protocol. GI prophylaxis: PPI. Stool softener PRN constipation. DVT PPx: Heparin Discharge Planning: We will discharge home when improved.
--- NOTE | 2017-12-18 15:52 | XR ---
EXAM DATE: 12/18/2017 2:30 PM EDT AGE/SEX: 57 years / Male INDICATIONS: Abdominal pain. Vomiting CLINICAL DATA: This is the patient's initial encounter. Patient reports that signs and symptoms have been present for 4 - 6 days and indicates a pain score of 4/10. MEDICAL/SURGICAL HISTORY: . Hypertension. . Fusion, cervical. Umbilical hernia COMPARISON: No prior exams available for comparison. FINDINGS: There is a diffuse ileus. No free air identified. No acute bony abnormalities. CONCLUSION: Ileus. No definite obstruction or free air. Electronically signed by: Gabriel Ayon MD 12/18/2017 3:51 PM EDT
[2017-12-18] MEDS: Pantoprazole Inj 40 MG Vial IV.PUSH SCH (16:06)
[2017-12-18] MEDS: Morphine Sulfate Inj 8 MG/ML Vial IV.PUSH PRN ×2 (16:07→22:05)
[2017-12-19] MEDS: Heparin - SQ 10,000 UNITS/ML Vial SQ SCH ×2 (00:57→10:17)
[2017-12-19] MEDS: Morphine Sulfate Inj 8 MG/ML Vial IV.PUSH PRN ×6 (02:33→22:07)
[2017-12-19 06:20] LABS: Chloride 101 meq/L (98-107); Potassium 3.5 meq/L (3.5-5.1); Sodium 135 meq/L (136-145)
[2017-12-19 06:24] LABS: Calcium 7.7 mg/dL (8.5-10.1); Glucose,Random 89 mg/dL (74-106)
[2017-12-19 06:25] LABS: Anion Gap 7 meq/L (5-15); Blood Urea Nitrogen 8 mg/dL (7-18); Carbon Dioxide 27.3 meq/L (21.0-32.0); Lipase 487 U/L (73-393)
[2017-12-19 06:28] LABS: Glomerular Filtration Rate Greater Than 89 mL/min (>89)
--- NOTE | 2017-12-19 10:18 | P.PNIM ---
Subjective Interval history: Patient reports his abdomen is still very distended and he continues to have pain. No nausea or vomiting. He remains n.p.o. Physical Exam Vital signs: Vital Signs 12/18/17 12:00 12/18/17 16:00 12/18/17 17:39 Temperature 99.9 F H 98.6 F Pulse Rate 93 H 89 Respiratory Rate 20 20 6 L Blood Pressure 126/67 131/74 Pulse Oximetry 95 95 12/18/17 20:00 12/19/17 00:00 12/19/17 05:17 Temperature 98.7 F 98.5 F Pulse Rate 94 H 87 Respiratory Rate 18 18 18 Blood Pressure 134/94 H 134/82 Pulse Oximetry 98 94 L 12/19/17 07:25 Temperature 98.9 F Pulse Rate 86 Respiratory Rate 20 Blood Pressure 132/68 Pulse Oximetry 94 L Intake & Output 12/18/17 12/19/17 12/19/17 18:59 06:59 18:59 Intake Total 1120 / 1120 1200 / 1200 1000 / 1000 Output Total 650 / 650 Balance 1120 / 1120 550 / 550 1000 / 1000 Weight 85.7 kg Intake: IV 1000 / 1000 1000 / 1000 1000 / 1000 LR 1000 mL Inj 1,000 ML @ 100 1000 / 1000 1000 / 1000 1000 / 1000 mls/hr IV.CONT .Q10H [facility] Rx#: [id number] Oral 120 / 120 200 / 200 Output: Urine 650 / 650 Other: # Voids 3 # Bowel Movements 0 Narrative: GENERAL: This is a well-nourished, well-developed patient, in no apparent distress. CARDIOVASCULAR: Normal rate and regular rhythm without murmurs, gallops, or rubs. RESPIRATORY: Good respiratory efforts. Breath sounds equal and clear to auscultation bilaterally. GASTROINTESTINAL: Abdomen is obese, distended, tympanic, tender to palpation diffusely. Hypoactive BS MUSCULOSKELETAL: Extremities without cyanosis, or edema. NEURO: Alert & Oriented x4 to person, place, time, situation. Moves all ext x4 PSYCH: Appropriate mood and affect. Results - Labs CBC & Chem 7: 12/17/17 06:15 12/19/17 05:22 Laboratory Results - last 24 hr 12/19/17 05:22 Sodium 135 L Potassium 3.5 Chloride 101 Carbon Dioxide 27.3 Anion Gap 7 BUN 8 Creatinine 0.60 Estimated GFR Greater than 89 Random Glucose 89 Calcium 7.7 L Lipase 487 H - Imaging Impressions Abdomen X-Ray 12/18/17 00:00 CONCLUSION: Ileus. No definite obstruction or free air. Assessment and Plan - Assessment (1) Acute pancreatitis Code(s): K85.90 - Acute pancreatitis without necrosis or infection, unspecified Status: Acute (2) Alcohol dependence Code(s): F10.20 - Alcohol dependence, uncomplicated Status: Acute (3) Accelerated hypertension Code(s): I10 - Essential (primary) hypertension Status: Acute - Plan 57-year-old male admitted with acute alcoholic pancreatitis. Alcoholic pancreatitis: -Supportive care with IV fluids, pain control. Continue with oral Percocet and keep IV morphine for breakthrough pain -Patient counseled regarding cessation of alcohol use. Ileus: Noted on KUB yesterday. Persistent abdominal distention and pain. I am concerned he may have an obstruction. He does have a history of hernia repair. -Keep n.p.o. for now. Continue IV fluid. - Obtain CT of the abdomen Hypertension Continue home dose metoprolol. Vasotec as needed. Alcohol dependence: -Patient extensively counseled on cessation of alcohol use. - [facility] protocol. GI prophylaxis: PPI. Stool softener PRN constipation. DVT PPx: Heparin Discharge Planning: We will discharge home when improved.
[2017-12-19] MEDS ORDERED: Diatrizoate Meglum/Diatrizoate Sod Liq 9 ML UDC PO ONE (11:49)
--- NOTE | 2017-12-19 14:33 | CT ---
EXAM DATE: 12/19/2017 2:02 PM EDT AGE/SEX: 57 years / Male INDICATIONS: Pancreatitis. Ileus. Evaluate for obstruction. CLINICAL DATA: This is the patient's subsequent encounter. Patient reports that signs and symptoms h ave been present for 3 days and indicates a pain score of 4/10. MEDICAL/SURGICAL HISTORY: Hypertension. . Hernia repair. Neck surgery. ORAL CONTRAST: Prescribed oral contrast ingested. RADIATION DOSE: 22.49 CTDI (mGy) COMPARISON: [facility], CT ABDOMEN & PELVIS W CONTRAST, 12/16/2017. . TECHNIQUE: Multiple contiguous axial images were obtained through the abdomen and pelvis following b olus infusion of 95 ml Omnipaque 350 (iohexol) nonionic water-soluble contrast as a single exam dos e. Prescribed oral contrast ingested. Using automated exposure control and adjustment of the mA and/ or kV according to patient size, radiation dose was kept as low as reasonably achievable to obtain op timal diagnostic quality images. DICOM format image data is available electronically for review and comparison. FINDINGS: Comparison is December 16. There is subsegmental atelectasis at the lung bases which is a new finding si nce December 16. Mild fatty liver. Spleen, adrenals and kidneys demonstrate no acute findings. Stable small left renal cyst. There are inflammatory and edematous changes around the pancreas which have increased since December 16. No calcified gallstones or biliary ductal dilatation. There is a small amount of free fluid in the abdomen and pelvis. No free air. There is a diffuse ileu s. No acute bony abnormalities. CONCLUSION: 1. Worsening of CT findings of acute pancreatitis with some increase in fluid and edema around the p ancreas since December 16. Fluid at this point appears to be mostly nonloculated. There is also trace fr ee fluid in the abdomen and pelvis. 2. Diffuse ileus. 3. New mild basilar atelectasis. Electronically signed by: Gabriel Ayon MD 12/19/2017 2:32 PM EDT
[2017-12-19] MEDS: Pantoprazole Inj 40 MG Vial IV.PUSH SCH (16:03)
--- NOTE | 2017-12-19 19:59 | MB ---
cc: Farzaneh Doll MD DATE: 12/19/2017 REFERRING PHYSICIAN: Dr. Steven REASON FOR REFERRAL: Abdominal pain, pancreatitis. Thank you for the consultation. HISTORY OF PRESENT ILLNESS: This is a 57-year-old gentleman who has a history of hyperlipidemia. His triglyceride was above 1000. He also has alcohol abuse on a regular basis. The patient came complaining of significant abdominal pain, chest pain, midepigastric area and was diagnosed with severe pancreatitis. The patient drinks at least 6 beers every night, with some wine also on a nightly basis. The patient's abdomen was distended in the last few days and found to have ileus, which seems to be getting worse. The pain according to him, steady 7/10 in the midepigastric area, with diffuse discomfort throughout the abdomen and distention. No radiation to the back at this time. No nausea or vomiting at this time. No alleviating factors except pain medication and the pain is sharp, but sometimes it can be dull. PAST MEDICAL HISTORY: Significant for neck and back pain, hyperlipidemia, hypertension. SOCIAL HISTORY: Positive for tobacco and alcohol. PAST SURGICAL HISTORY: Significant for neck surgery and hernia repair. FAMILY HISTORY: Noncontributory. REVIEW OF SYSTEMS: All 12-point negative except for HPI. MEDICATIONS: Reviewed and listed in the chart. ALLERGIES: SULFA. PHYSICAL EXAMINATION: GENERAL: Alert, oriented, no acute distress, sitting in the chair at this time. VITAL SIGNS: Stable. No fever. HEENT: Pupils round, reactive to light. NECK: Supple. CHEST: Clear to auscultation and percussion. CARDIAC: Regular rate and rhythm. No murmur or gallop at this time. ABDOMEN: Soft, distended, moderate tenderness in the mid abdomen and the epigastric area. Positive bowel sounds, but decreased significantly. EXTREMITIES: No edema, clubbing or cyanosis at this time. NEUROLOGIC: Alert, oriented. No focal abnormality. No slurred speech. PSYCHOLOGIC: Appropriate. SKIN: Dry. No jaundice. LABORATORY DATA: CBC normal, hemoglobin was 14.5, white blood cells 8.2, platelet 180. INR 1.1. Chemistry: Lipase on admission was 19,203, today is 487, which is steadily going down. Liver function test was normal, including total bilirubin of 0.7, creatinine was 0.6. IMAGING: CT scan showed pancreatitis, which is a little bit worse since admission and mostly in the head with some fluid. No loculated fluid. No pseudocyst. Diffuse ileus. ASSESSMENT AND PLAN: This is a 57-year-old male who has a history of pancreatitis, acute, first episode 2 days ago, with abdominal pain, nausea. His pain is slightly better controlled with pain medication. This is most likely secondary to combination of alcohol and dyslipidemia. 1. For this, the patient needs to be managed conservatively with IV fluid, pain management and possibly start clear liquid and advance diet as his ileus resolves. 2. Ileus secondary to pancreatitis. He is having bowel movement, though he had a loose stool today. We will need to check a KUB on him tomorrow to see if there is any improvement. In the meanwhile, we will continue supportive care at this time. Thank you. Will follow up with you. MD GRICEL Harvey/CAMRYN , 07:01 PM , 07:12 PM
[2017-12-20] MEDS: Heparin - SQ 10,000 UNITS/ML Vial SQ SCH ×2 (00:55→10:58)
[2017-12-20] MEDS: Morphine Sulfate Inj 8 MG/ML Vial IV.PUSH PRN ×3 (03:15→11:14)
[2017-12-20 06:15] LABS: Hematocrit 32.1 % (39.0-51.0); Hemoglobin 11.5 gm/dL (13.0-17.0); Mean Corpuscular HGB Conc 35.9 % (32.0-36.0); Mean Corpuscular Hemoglobin 34.8 pg (27.0-34.0); Platelet Count 180 th/mm3 (150-450); Red Blood Count 3.31 mil/mm3 (4.50-5.90); Red Cell Distribution Width 12.5 % (11.6-17.2); White Blood Count 8.3 th/mm3 (4.0-11.0)
[2017-12-20 06:20] LABS: Chloride 100 meq/L (98-107); Potassium 3.5 meq/L (3.5-5.1); Sodium 137 meq/L (136-145)
[2017-12-20 06:23] LABS: Calcium 8.2 mg/dL (8.5-10.1)
[2017-12-20 06:24] LABS: Anion Gap 5 meq/L (5-15); Blood Urea Nitrogen 6 mg/dL (7-18); Carbon Dioxide 31.7 meq/L (21.0-32.0); Glucose,Random 110 mg/dL (74-106); Lipase 314 U/L (73-393)
[2017-12-20 06:27] LABS: Glomerular Filtration Rate Greater Than 89 mL/min (>89)
--- NOTE | 2017-12-20 09:51 | P.PNIM ---
Subjective Interval history: Patient is still bloated with abdominal discomfort. He had some liquid stool overnight. No nausea or vomiting. Physical Exam Vital signs: Vital Signs 12/19/17 11:08 12/19/17 15:26 12/19/17 20:00 Temperature 98.7 F 99.9 F H 100.7 F H Pulse Rate 84 89 107 H Respiratory Rate 20 20 16 Blood Pressure 130/69 154/87 H 150/99 H Pulse Oximetry 94 L 96 99 12/20/17 00:00 12/20/17 08:00 Temperature 98.6 F 98.4 F Pulse Rate 81 83 Respiratory Rate 18 18 Blood Pressure 135/72 149/81 H Pulse Oximetry 96 97 Intake & Output 12/19/17 12/20/17 12/20/17 18:59 06:59 18:59 Intake Total 1600 / 1600 1160 / 1160 1000 / 1000 Output Total 1450 / 1450 Balance 1600 / 1600 -290 / -290 1000 / 1000 Weight 85.7 kg Intake: IV 1600 / 1600 400 / 400 1000 / 1000 LR 1000 mL Inj 1,000 ML @ 100 1600 / 1600 400 / 400 1000 / 1000 mls/hr IV.CONT .Q10H [facility] Rx#: [id number] Oral 760 / 760 Output: Urine 1450 / 1450 Other: # Voids 4 Narrative: GENERAL: This is a well-nourished, well-developed patient, in no apparent distress. CARDIOVASCULAR: Normal rate and regular rhythm without murmurs, gallops, or rubs. RESPIRATORY: Good respiratory efforts. Breath sounds equal and clear to auscultation bilaterally. GASTROINTESTINAL: Abdomen is obese, distended, tympanic, tender to palpation diffusely. Hypoactive BS MUSCULOSKELETAL: Extremities without cyanosis, or edema. NEURO: Alert & Oriented x4 to person, place, time, situation. Moves all ext x4 PSYCH: Appropriate mood and affect. Results - Labs CBC & Chem 7: 12/20/17 05:45 12/20/17 05:45 Laboratory Results - last 24 hr 12/20/17 12/20/17 05:45 05:45 WBC 8.3 RBC 3.31 L Hgb 11.5 L Hct 32.1 L MCV 97.0 MCH 34.8 H MCHC 35.9 RDW 12.5 Plt Count 180 MPV 9.0 Sodium 137 Potassium 3.5 Chloride 100 Carbon Dioxide 31.7 Anion Gap 5 BUN 6 L Creatinine 0.64 Estimated GFR Greater than 89 Random Glucose 110 H Calcium 8.2 L Lipase 314 - Imaging Impressions Abdomen/Pelvis CT 12/19/17 00:00 CONCLUSION: 1. Worsening of CT findings of acute pancreatitis with some increase in fluid and edema around the pancreas since December 4. Fluid at this point appears to be mostly nonloculated. There is also trace free fluid in the abdomen and pelvis. 2. Diffuse ileus. 3. New mild basilar atelectasis. Assessment and Plan - Assessment (1) Acute pancreatitis Code(s): K85.90 - Acute pancreatitis without necrosis or infection, unspecified Status: Acute (2) Alcohol dependence Code(s): F10.20 - Alcohol dependence, uncomplicated Status: Acute (3) Accelerated hypertension Code(s): I10 - Essential (primary) hypertension Status: Acute - Plan 57-year-old male admitted with acute alcoholic pancreatitis. Alcoholic pancreatitis: -Supportive care with IV fluids, pain control. Continue with oral Percocet as needed and keep IV morphine for breakthrough pain. DW patient to try to avoid the Narcotics -Patient counseled regarding cessation of alcohol use. -Abdominal CT on 12/20/17 showed worsening findings of acute pancreatitis and diffuse ileus. Lipase normalized - GI consulted and recommended conservative treatment/supportive care Ileus: Persistent abdominal distention and pain. He does have a history of hernia repair. - Mild improvement on KUB today - Liquid diet. Stool softener. - Follow abdominal exam Hypertension Continue home dose metoprolol. Vasotec as needed. Alcohol dependence: -Patient extensively counseled on cessation of alcohol use. - CIWA protocol. GI prophylaxis: PPI. Stool softener PRN constipation. DVT PPx: Heparin Discharge Planning: We will discharge home when improved.
--- NOTE | 2017-12-20 10:17 | XR ---
EXAM DATE: 12/20/2017 9:08 AM EDT AGE/SEX: 57 years / Male INDICATIONS: Abdominal distention; Ileus. CLINICAL DATA: This is the patient's subsequent encounter. Patient reports that signs and symptoms h ave been present for 2 weeks and indicates a pain score of 6/10. MEDICAL/SURGICAL HISTORY: Hypertension. Umbilical hernia repair. COMPARISON: [facility], ABDOMEN 1V KUB, 12/18/2017. . FINDINGS: The bowel gas pattern is nonspecific with some air-filled loops of small and large bowel. The overal l bowel gas pattern appears to be mildly improved compared to the prior examination. No significant d ilated loops of bowel are demonstrated. There is platelike atelectasis in the left lung base. The rig ht lung base is clear. No definite free air. CONCLUSION: There has been mild improvement in the bowel gas pattern compared to the prior examination. Electronically signed by: Edwardo Crouch MD 12/20/2017 10:15 AM EDT
[2017-12-20] MEDS: Docusate Sodium 100 MG Capsule PO PRN ×2 (10:58→20:38)
[2017-12-20] MEDS: Pantoprazole Inj 40 MG Vial IV.PUSH SCH (16:32)
[2017-12-20] MEDS: Morphine Inj 4 MG/ML Vial IV.PUSH PRN ×2 (16:33→20:38)
--- NOTE | 2017-12-20 19:25 | P.PNGI ---
Subjective Interval history: Patient sitting in the chair, complaining of mild pain than before he stated that his symptoms subsided, he is going to the bathroom now with the help of stool softener, Physical Exam Vital signs: Vital Signs 12/19/17 20:00 12/20/17 00:00 12/20/17 08:00 Temperature 100.7 F H 98.6 F 98.4 F Pulse Rate 107 H 81 83 Respiratory Rate 16 18 18 Blood Pressure 150/99 H 135/72 149/81 H Pulse Oximetry 99 96 97 12/20/17 12:00 12/20/17 16:00 Temperature 98.4 F 99.4 F Pulse Rate 83 80 Respiratory Rate 18 18 Blood Pressure 149/81 H 139/77 Pulse Oximetry 97 97 Intake & Output 12/20/17 12/20/17 12/21/17 06:59 18:59 06:59 Intake Total 1160 / 1160 1000 / 1000 Output Total 1450 / 1450 Balance -290 / -290 1000 / 1000 Weight 85.7 kg Intake: IV 400 / 400 1000 / 1000 LR 1000 mL Inj 1,000 ML @ 100 400 / 400 1000 / 1000 mls/hr IV.CONT .Q10H [facility] Rx#: [id number] Oral 760 / 760 0 / 0 Output: Urine 1450 / 1450 Other: # Voids 6 Date of Last Bowel Movement 12/20/17 # Bowel Movements 4 - Constitutional no acute distress, mild distress - Routine HEENT Exam Head: Present: normocephalic, atraumatic - Routine Neck Exam Present: supple, full ROM - Routine Respiratory Exam Present: CTA bilaterally - Routine Cardiovascular Exam Present: RRR, S1, S2 - Routine Abdominal Exam Present: soft, normoactive bowel sounds, firm Results - Labs CBC & Chem 7: 12/20/17 05:45 12/20/17 05:45 Laboratory Results - last 24 hr 12/20/17 12/20/17 05:45 05:45 WBC 8.3 RBC 3.31 L Hgb 11.5 L Hct 32.1 L MCV 97.0 MCH 34.8 H MCHC 35.9 RDW 12.5 Plt Count 180 MPV 9.0 Sodium 137 Potassium 3.5 Chloride 100 Carbon Dioxide 31.7 Anion Gap 5 BUN 6 L Creatinine 0.64 Estimated GFR Greater than 89 Random Glucose 110 H Calcium 8.2 L Lipase 314 - Imaging Impressions Abdomen X-Ray 12/20/17 00:00 CONCLUSION: There has been mild improvement in the bowel gas pattern compared to the prior examination. Assessment and Plan - Plan 57-year-old gentleman with pancreatitis secondary to alcohol and hyperlipidemia , his labs improving lipase is normal now, less abdominal pain and less distended Patient also has ileus which seems to be improving he is having bowel movement and the x-ray showed less distention of the bowel, continue clear liquid, if tomorrow his abdominal pain is better and distention is less we can advance diet as tolerated, patient was instructed to be on low-fat diet, control his hyperlipidemia, no alcohol
[2017-12-21] MEDS: Heparin - SQ 10,000 UNITS/ML Vial SQ SCH ×2 (00:55→12:25)
[2017-12-21] MEDS: Morphine Inj 4 MG/ML Vial IV.PUSH PRN ×3 (00:56→09:41)
[2017-12-21 09:28] VITALS: RESP 19
--- NOTE | 2017-12-21 11:18 | P.DS ---
Date of admission: 12/16/17 09:30 Primary care physician: Dacia Stokes MD Brief History from admission: 57-year-old male with a medical history significant for hypertension and alcohol abuse presented to the emergency room for chest pain that started 2 days ago. Pain is located in the midepigastric region, described as severe and sharp with associated dry heaving. No diarrhea. Patient reports he drinks about 6 beers every day and a few glasses of wine at night. He reports a few days ago he drank a lot more while he was golfing. Workup in the emergency room consistent with acute pancreatitis. DS: Diagnosis - Discharge Diagnosis (1) Acute pancreatitis Status: Acute (2) Alcohol dependence Status: Acute (3) Ileus Status: Acute DS: Summary Hospital Course: Patient was seen and treated for acute pancreatitis likely due to alcohol consumption, patient was admonished to avoid alcohol. He did have an ileus which resolved with a bowel prep. Seen by GI in consultation. Overall improved and discharge plans are discussed with patient who is agreeable - Time Spent with Patient Total time spent providing and/or coordinating discharge services: Less than 30 minutes Exam Vital signs: Vital Signs 12/20/17 12:00 12/20/17 16:00 12/20/17 20:00 Temperature 98.4 F 99.4 F 99.1 F Pulse Rate 83 80 79 Respiratory Rate 18 18 22 Blood Pressure 149/81 H 139/77 175/84 H Pulse Oximetry 97 97 96 12/21/17 00:00 12/21/17 04:00 12/21/17 08:00 Temperature 99.4 F 97.4 F L 98.5 F Pulse Rate 75 73 79 Respiratory Rate 20 20 19 Blood Pressure 152/84 H 144/80 H 145/79 H Pulse Oximetry 97 97 96 Intake & Output 12/20/17 12/21/17 12/21/17 18:59 06:59 18:59 Intake Total 1000 / 1000 2200 / 2200 Balance 1000 / 1000 2200 / 2200 Weight 85.7 kg Intake: IV 1000 / 1000 1000 / 1000 LR 1000 mL Inj 1,000 ML @ 100 1000 / 1000 1000 / 1000 mls/hr IV.CONT .Q10H [facility]ER[facility] Rx#: [id number] Oral 0 / 0 1200 / 1200 Other: # Voids 6 4 Date of Last Bowel Movement 12/20/17 # Bowel Movements 4 Narrative: GENERAL: Well-nourished, well-developed patient. SKIN: Warm and dry. HEAD: Normocephalic. EYES: No scleral icterus. No injection or drainage. NECK: Supple, trachea midline. No JVD or lymphadenopathy. CARDIOVASCULAR: Regular rate and rhythm without murmurs, gallops, or rubs. RESPIRATORY: Breath sounds equal bilaterally. No accessory muscle use. GASTROINTESTINAL: Abdomen soft, non-tender, nondistended. MUSCULOSKELETAL: No cyanosis, or edema. BACK: Nontender without obvious deformity. No CVA tenderness. NEUROLOGICAL: Awake and alert. Cranial nerves II through XII intact. Motor and sensory grossly within normal limits. Five out of 5 muscle strength in all muscle groups. Normal speech. Results Procedures completed during hospitalization: none - Impressions ITS Impressions Chest X-Ray 12/16/17 07:24 CONCLUSION: Negative examination. Abdomen/Pelvis CT 12/19/17 00:00 CONCLUSION: 1. Worsening of CT findings of acute pancreatitis with some increase in fluid and edema around the pancreas since December 16. Fluid at this point appears to be mostly nonloculated. There is also trace free fluid in the abdomen and pelvis. 2. Diffuse ileus. 3. New mild basilar atelectasis. Abdomen X-Ray 12/20/17 00:00 CONCLUSION: There has been mild improvement in the bowel gas pattern compared to the prior examination. Discharge Plan - Discharge Disposition Patient Disposition: 01 Discharge Home - Discharge Condition Condition: Stable - Discharge Order Discharge Orders: Discharge Order (Routine); Ordered 12/21/17 Ordered By: Neda Roberts - Discharge Details Anticipated Discharge Date: 12/21/17 - Physicians Team Primary Care Provider: Dacia Stokes Attending Provider: Neda Roberts Other Providers: Bishop Jorgensen MD
[2017-12-21 16:19] VITALS: BP 139/82; PULSE 84; TEMP 98; O2SAT 97
== END 2017-12-21 16:20 | disposition home or self-care (01) ==
LOC: PHED 06:38 → PHEDA 09:30 → PH3 11:04
PROVIDERS: ADMIT Hospitalist; ATTEND Hospitalist